=== PATIENT | female | born 1955 | race Caucasian/White ===

== ENCOUNTER 2020-12-12 21:22 | Inpatient (IN) ==
[2020-12-13] MEDS ORDERED: Isovue-370 500 ML BOTTLE IVP ONE (01:49)
[2020-12-13 03:57] LABS: BUN/Creatinine Ratio 5 (6-26); Basophils % 0.6 %; Blood Urea Nitrogen 2 mg/dL (8-23); Calcium 8.6 mg/dL (8.6-10.3); Carbon Dioxide 25 mEq/L (23-29); Chloride 97 mEq/L (98-107); Eosinophils # 0.1 K/mcL (0.0-0.6); Eosinophils % 1.5 %; Glucose 93 mg/dL (70-105); Hematocrit 43.1 % (35.3-44.9); Immature Granulocytes % 0.2 % (0-4); Lymphocytes # 2.4 K/mcL (0.6-4.6); Lymphocytes % 50.3 %; Mean Corpuscular HGB Conc 34.8 g/dL (31.6-35.5); Mean Corpuscular Hemoglobin 31.1 pg (28.0-33.3); Mean Corpuscular Volume 89.4 fL (83.0-100.0); Mean Platelet Volume 11.4 fL (9.4-12.4); Monocytes # 0.3 K/mcL (0.0-1.3); Monocytes % 5.2 %; Osmolality,Calculated 268 (280-300); Platelet Count 160 K/mcL (140-400); Potassium 3.3 mEq/L (3.5-5.1); Red Blood Count 4.82 M/mcL (3.82-4.97); Red Cell Distribution Width 12.8 % (11.5-14.5); Segmented Neutrophils % 42.2 %; Sodium 131 mEq/L (136-145); White Blood Count 4.8 K/mcL (4.3-11.1); eGFR For African Americans > 60 (> 60); eGFR For Non-African Americans > 60 (> 60)
[2020-12-13 03:58] LABS: Troponin I < 0.03 ng/mL (< 0.04)
[2020-12-13] MEDS ORDERED: Naloxone 0.4 MG/ML INJ IVP PRN (08:18)
[2020-12-13] MEDS ORDERED: Ondansetron 4 MG/2 ML VIAL IVP PRN (08:18)
[2020-12-13 08:21] LABS: Adenovirus Not Detected (Not Detect); Bordetella Pertussis Not Detected (Not Detect); Chlamydophila pneumoniae Not Detected (Not Detect); Coronavirus 229E Not Detected (Not Detect); Coronavirus HKU1 Not Detected (Not Detect); Coronavirus NL63 Not Detected (Not Detect); Coronavirus OC43 Not Detected (Not Detect); Human Metapneumovirus Not Detected (Not Detect); Human Rhinovirus/Enterovirus Not Detected (Not Detect); Influenza A Subtype 2009 H1 Not Detected (Not Detect); Influenza B Not Detected (Not Detect); Mycoplasma pneumoniae Not Detected (Not Detect); Parainfluenza Virus 1 Not Detected (Not Detect); Parainfluenza Virus 2 Not Detected (Not Detect); Parainfluenza Virus 3 Not Detected (Not Detect); Parainfluenza Virus 4 Not Detected (Not Detect); Respiratory Syncytial Virus Not Detected (Not Detect); SARS-CoV-2 Not Detected (Not Detect)
[2020-12-13 08:46] LABS: Ethanol 182 mg/dL (Less than 10)
[2020-12-13] MEDS: levoFLOXacin 750 MG/150 ML 750 MG/150 ML BAG IVPB SCH (10:13)
[2020-12-13] MEDS: Ipratropium/Albuterol Neb 3 ML IH SCH ×3 (10:28→16:30)
[2020-12-13] MEDS: Budesonide/Formoterol 80/4.5 1 PUFF INH IH SCH (16:30)
[2020-12-13] MEDS: predniSONE 20 MG TABLET PO SCH (16:50)
[2020-12-13] MEDS ORDERED: *HR* Enoxaparin 80 MG/0.8 ML SYRINGE SQ SCH (18:00)
[2020-12-13] MEDS ORDERED: Melatonin 3 MG TABLET PO ONE (23:09)
[2020-12-14] MEDS: Ipratropium/Albuterol Neb 3 ML IH SCH ×5 (03:49→22:20)
[2020-12-14] MEDS ORDERED: *HR* Enoxaparin 40 MG/0.4 ML SYRINGE SQ SCH (06:00)
[2020-12-14 06:49] LABS: Immature Granulocytes % 0.4 % (0-4)
[2020-12-14 06:51] LABS: Hematocrit 35.3 % (35.3-44.9); Hemoglobin 12.3 g/dL (11.5-15.4); Lymphocytes # 0.5 K/mcL (0.6-4.6); Lymphocytes % 20.2 %; Mean Corpuscular HGB Conc 34.8 g/dL (31.6-35.5); Mean Corpuscular Hemoglobin 31.1 pg (28.0-33.3); Mean Corpuscular Volume 89.1 fL (83.0-100.0); Monocytes # 0.1 K/mcL (0.0-1.3); Monocytes % 5.4 %; Neutrophils # 1.8 K/mcL (1.6-8.9); Platelet Count 123 K/mcL (140-400); Red Blood Count 3.96 M/mcL (3.82-4.97); Red Cell Distribution Width 12.7 % (11.5-14.5); White Blood Count 2.4 K/mcL (4.3-11.1)
[2020-12-14 07:22] LABS: Alanine Aminotransferase 16 Units/L (7-52); Albumin 2.7 g/dL (3.5-5.7); Alkaline Phosphatase 85 Units/L (34-104); Aspartate Amino Transferase 32 Units/L (13-39); BUN/Creatinine Ratio 7 (6-26); Bilirubin,Total 0.7 mg/dL (0.3-1.0); Blood Urea Nitrogen 3 mg/dL (8-23); Calcium 8.3 mg/dL (8.6-10.3); Carbon Dioxide 26 mEq/L (23-29); Chloride 96 mEq/L (98-107); Globulin 2.7 g/dL (2.4-3.5); Glucose 158 mg/dL (70-105); Osmolality,Calculated 268 (280-300); Potassium 3.8 mEq/L (3.5-5.1); Sodium 129 mEq/L (136-145); Total Protein 5.4 g/dL (6.4-8.9); eGFR For African Americans > 60 (> 60); eGFR For Non-African Americans > 60 (> 60)
[2020-12-14] MEDS: Budesonide/Formoterol 80/4.5 1 PUFF INH IH SCH ×2 (07:46→22:19)
[2020-12-14] MEDS: levoFLOXacin 750 MG/150 ML 750 MG/150 ML BAG IVPB SCH (08:11)
[2020-12-14] MEDS: predniSONE 20 MG TABLET PO SCH (08:11)
[2020-12-14] MEDS ORDERED: Apixaban 5 MG TABLET PO SCH (09:00)
[2020-12-14] MEDS: Apixaban 5 MG TABLET PO SCH (17:30)
[2020-12-14] MEDS: Melatonin 3 MG TABLET PO SCH (20:52)
[2020-12-14] MEDS: hydrOXYzine pamoate 25 MG CAPSULE PO SCH (20:52)
[2020-12-15 01:20] LABS: Basophils % 0.2 %; Eosinophils % 0.2 %; Hemoglobin 12.3 g/dL (11.5-15.4); Immature Granulocytes % 0.2 % (0-4); Immature Platelets 9.1 % (1.1-6.1); Lymphocytes # 1.2 K/mcL (0.6-4.6); Lymphocytes % 22.3 %; Mean Corpuscular HGB Conc 35.1 g/dL (31.6-35.5); Mean Corpuscular Hemoglobin 31.5 pg (28.0-33.3); Mean Corpuscular Volume 89.7 fL (83.0-100.0); Mean Platelet Volume 11.8 fL (9.4-12.4); Monocytes # 0.4 K/mcL (0.0-1.3); Monocytes % 6.7 %; Neutrophils # 3.7 K/mcL (1.6-8.9); Platelet Count 132 K/mcL (140-400); Red Cell Distribution Width 12.7 % (11.5-14.5); Segmented Neutrophils % 70.4 %; White Blood Count 5.3 K/mcL (4.3-11.1)
[2020-12-15 01:44] LABS: BUN/Creatinine Ratio 9 (6-26); Blood Urea Nitrogen 4 mg/dL (8-23); Calcium 8.6 mg/dL (8.6-10.3); Carbon Dioxide 24 mEq/L (23-29); Chloride 94 mEq/L (98-107); Glucose 104 mg/dL (70-105); Osmolality,Calculated 257 (280-300); Sodium 125 mEq/L (136-145); eGFR For African Americans > 60 (> 60); eGFR For Non-African Americans > 60 (> 60)
[2020-12-15] MEDS: Ipratropium/Albuterol Neb 3 ML IH SCH ×4 (04:03→21:00)
[2020-12-15] MEDS: Apixaban 5 MG TABLET PO SCH ×2 (06:25→17:38)
[2020-12-15] MEDS: predniSONE 20 MG TABLET PO SCH (09:36)
[2020-12-15] MEDS: levoFLOXacin 750 MG/150 ML 750 MG/150 ML BAG IVPB SCH (09:36)
[2020-12-15] MEDS: Aspirin Enteric Coated 81 MG Tablet PO SCH (09:36)
[2020-12-15] MEDS: Budesonide/Formoterol 80/4.5 1 PUFF INH IH SCH ×2 (10:28→21:00)
[2020-12-15 18:04] LABS: Amphetamine Screen,Urine Negative ng/mL (Cutoff=1000); Barbiturate Screen,Urine Negative ng/mL (Cutoff=200); Benzodiazepines Screen,Urine Negative ng/mL (Cutoff=200); Cannabinoid Screen,Urine Negative ng/mL (Cutoff = 50); Cocaine Screen,Urine Negative ng/mL (Cutoff= 300); Opiate Screen,Urine Positive ng/mL (Cutoff=300); Phencyclidine Screen,Urine Negative ng/mL (Cutoff=25)
[2020-12-15] MEDS: Melatonin 3 MG TABLET PO SCH (20:34)
[2020-12-15] MEDS: hydrOXYzine pamoate 25 MG CAPSULE PO SCH (20:36)
[2020-12-16 01:53] LABS: Hemoglobin 11.7 g/dL (11.5-15.4)
[2020-12-16 01:55] LABS: Hematocrit 34.8 % (35.3-44.9); Immature Platelets 9.8 % (1.1-6.1); Mean Corpuscular HGB Conc 33.6 g/dL (31.6-35.5); Mean Corpuscular Hemoglobin 31.1 pg (28.0-33.3); Mean Corpuscular Volume 92.6 fL (83.0-100.0); Mean Platelet Volume 11.9 fL (9.4-12.4); Red Blood Count 3.76 M/mcL (3.82-4.97); Red Cell Distribution Width 13.1 % (11.5-14.5); White Blood Count 5.3 K/mcL (4.3-11.1)
[2020-12-16 02:00] LABS: BUN/Creatinine Ratio 9 (6-26); Blood Urea Nitrogen 5 mg/dL (8-23); Carbon Dioxide 23 mEq/L (23-29); Chloride 96 mEq/L (98-107); Glucose 181 mg/dL (70-105); Osmolality,Calculated 266 (280-300); Potassium 4.1 mEq/L (3.5-5.1); Sodium 127 mEq/L (136-145); eGFR For African Americans > 60 (> 60); eGFR For Non-African Americans > 60 (> 60)
[2020-12-16] MEDS: Ipratropium/Albuterol Neb 3 ML IH SCH ×4 (04:29→21:04)
[2020-12-16] MEDS: Apixaban 5 MG TABLET PO SCH ×2 (05:58→16:53)
[2020-12-16] MEDS ORDERED: 0.9 % Sodium Chloride 500 ML IVC SCH (08:00)
[2020-12-16] MEDS: Aspirin Enteric Coated 81 MG Tablet PO SCH (09:29)
[2020-12-16] MEDS: predniSONE 20 MG TABLET PO SCH ×2 (09:29→09:32)
[2020-12-16] MEDS: levoFLOXacin 750 MG/150 ML 750 MG/150 ML BAG IVPB SCH (09:30)
[2020-12-16] MEDS: Budesonide/Formoterol 80/4.5 1 PUFF INH IH SCH ×2 (10:49→21:04)
[2020-12-16 16:59] LABS: BUN/Creatinine Ratio 9 (6-26); Blood Urea Nitrogen 6 mg/dL (8-23); Calcium 8.3 mg/dL (8.6-10.3); Carbon Dioxide 29 mEq/L (23-29); Chloride 97 mEq/L (98-107); Glucose 87 mg/dL (70-105); Osmolality,Calculated 267 (280-300); Potassium 4.1 mEq/L (3.5-5.1); Sodium 130 mEq/L (136-145); eGFR For African Americans > 60 (> 60); eGFR For Non-African Americans > 60 (> 60)
[2020-12-16] MEDS: 0.9 % Sodium Chloride 1,000 ML IVC SCH (17:32)
[2020-12-16] MEDS: hydrOXYzine pamoate 25 MG CAPSULE PO SCH (21:18)
[2020-12-16] MEDS: Melatonin 3 MG TABLET PO SCH (21:18)
[2020-12-17 02:50] LABS: Mean Corpuscular Volume 92.3 fL (83.0-100.0)
[2020-12-17 02:52] LABS: Hematocrit 40.8 % (35.3-44.9); Hemoglobin 13.7 g/dL (11.5-15.4); Immature Platelets 10.4 % (1.1-6.1); Mean Corpuscular HGB Conc 33.6 g/dL (31.6-35.5); Mean Platelet Volume 11.5 fL (9.4-12.4); Red Blood Count 4.42 M/mcL (3.82-4.97); Red Cell Distribution Width 12.9 % (11.5-14.5); White Blood Count 6.5 K/mcL (4.3-11.1)
[2020-12-17 03:02] LABS: BUN/Creatinine Ratio 11 (6-26); Blood Urea Nitrogen 7 mg/dL (8-23); Calcium 8.8 mg/dL (8.6-10.3); Carbon Dioxide 26 mEq/L (23-29); Chloride 99 mEq/L (98-107); Glucose 86 mg/dL (70-105); Osmolality,Calculated 269 (280-300); Potassium 3.8 mEq/L (3.5-5.1); Sodium 131 mEq/L (136-145); eGFR For African Americans > 60 (> 60); eGFR For Non-African Americans > 60 (> 60)
[2020-12-17] MEDS: Ipratropium/Albuterol Neb 3 ML IH SCH ×4 (03:30→20:19)
[2020-12-17] MEDS: Apixaban 5 MG TABLET PO SCH ×2 (06:27→16:19)
[2020-12-17] MEDS: predniSONE 20 MG TABLET PO SCH (07:44)
[2020-12-17] MEDS: Aspirin Enteric Coated 81 MG Tablet PO SCH (07:46)
[2020-12-17] MEDS: Budesonide/Formoterol 80/4.5 1 PUFF INH IH SCH ×2 (07:52→20:20)
[2020-12-17] MEDS: 0.9 % Sodium Chloride 1,000 ML IVC SCH (07:52)
[2020-12-17] MEDS: levoFLOXacin 750 MG/150 ML 750 MG/150 ML BAG IVPB SCH (07:52)
[2020-12-17 16:46] LABS: BUN/Creatinine Ratio 13 (6-26); Blood Urea Nitrogen 8 mg/dL (8-23); Calcium 8.5 mg/dL (8.6-10.3); Carbon Dioxide 26 mEq/L (23-29); Chloride 99 mEq/L (98-107); Glucose 137 mg/dL (70-105); Osmolality,Calculated 274 (280-300); Potassium 3.8 mEq/L (3.5-5.1); Sodium 132 mEq/L (136-145); eGFR For African Americans > 60 (> 60); eGFR For Non-African Americans > 60 (> 60)
[2020-12-17] MEDS ORDERED: 0.9 % Sodium Chloride 500 ML IVC SCH (17:00)
[2020-12-17] MEDS: Melatonin 3 MG TABLET PO SCH (21:02)
[2020-12-17] MEDS: hydrOXYzine pamoate 25 MG CAPSULE PO SCH (21:02)
[2020-12-18] MEDS: Ipratropium/Albuterol Neb 3 ML IH SCH ×4 (03:17→22:27)
[2020-12-18] MEDS: Apixaban 5 MG TABLET PO SCH ×2 (05:36→16:47)
[2020-12-18 05:56] LABS: Red Cell Distribution Width 12.9 % (11.5-14.5)
[2020-12-18 05:58] LABS: Hematocrit 34.4 % (35.3-44.9); Hemoglobin 11.6 g/dL (11.5-15.4); Immature Platelets 8.7 % (1.1-6.1); Mean Corpuscular HGB Conc 33.7 g/dL (31.6-35.5); Mean Corpuscular Hemoglobin 30.9 pg (28.0-33.3); Mean Corpuscular Volume 91.5 fL (83.0-100.0); Mean Platelet Volume 11.5 fL (9.4-12.4); Red Blood Count 3.76 M/mcL (3.82-4.97)
[2020-12-18 06:14] LABS: BUN/Creatinine Ratio 14 (6-26); Blood Urea Nitrogen 8 mg/dL (8-23); Calcium 8.5 mg/dL (8.6-10.3); Carbon Dioxide 28 mEq/L (23-29); Chloride 100 mEq/L (98-107); Glucose 105 mg/dL (70-105); Osmolality,Calculated 273 (280-300); Potassium 3.7 mEq/L (3.5-5.1); Sodium 132 mEq/L (136-145); eGFR For African Americans > 60 (> 60); eGFR For Non-African Americans > 60 (> 60)
[2020-12-18] MEDS: Aspirin Enteric Coated 81 MG Tablet PO SCH (08:41)
[2020-12-18] MEDS: levoFLOXacin 750 MG/150 ML 750 MG/150 ML BAG IVPB SCH (08:41)
[2020-12-18] MEDS: Budesonide/Formoterol 80/4.5 1 PUFF INH IH SCH ×2 (09:34→22:26)
[2020-12-18 15:15] LABS: Hematocrit 34.8 % (35.3-44.9); Hemoglobin 11.6 g/dL (11.5-15.4)
[2020-12-18] MEDS: hydrOXYzine pamoate 25 MG CAPSULE PO SCH (21:32)
[2020-12-18] MEDS: Melatonin 3 MG TABLET PO SCH (21:32)
[2020-12-19] MEDS: Ipratropium/Albuterol Neb 3 ML IH SCH ×2 (04:22→09:51)
[2020-12-19] MEDS: Apixaban 5 MG TABLET PO SCH (05:48)
[2020-12-19 06:25] LABS: Hemoglobin 11.5 g/dL (11.5-15.4); Immature Platelets 9.2 % (1.1-6.1); Mean Corpuscular HGB Conc 34.8 g/dL (31.6-35.5); Mean Corpuscular Hemoglobin 31.8 pg (28.0-33.3); Mean Corpuscular Volume 91.2 fL (83.0-100.0); Mean Platelet Volume 11.7 fL (9.4-12.4); Red Blood Count 3.62 M/mcL (3.82-4.97); Red Cell Distribution Width 13.1 % (11.5-14.5); White Blood Count 7.8 K/mcL (4.3-11.1)
[2020-12-19 06:40] LABS: BUN/Creatinine Ratio 14 (6-26); Blood Urea Nitrogen 8 mg/dL (8-23); Calcium 8.7 mg/dL (8.6-10.3); Carbon Dioxide 27 mEq/L (23-29); Chloride 100 mEq/L (98-107); Glucose 112 mg/dL (70-105); Osmolality,Calculated 273 (280-300); Sodium 132 mEq/L (136-145); eGFR For African Americans > 60 (> 60); eGFR For Non-African Americans > 60 (> 60)
[2020-12-19 07:14] VITALS: BP 118/74; PULSE 96; TEMP 97.6
[2020-12-19] MEDS: Aspirin Enteric Coated 81 MG Tablet PO SCH (08:49)
[2020-12-19] MEDS: Budesonide/Formoterol 80/4.5 1 PUFF INH IH SCH (09:52)
[2020-12-19 09:55] VITALS: O2SAT 95
== END 2020-12-19 12:55 | disposition home health service (06) | DRG 300 ==
LOC: EMEROOARM 21:22 → 3BNU 21:22 → SUATTDRO 12-13 07:08 → 3BNU 12-13 08:20 → SUATTDRO 12-16 16:45
PROVIDERS: ADMIT Student in an Organized Health Care Education/Training Program; ATTEND Nurse Practitioner